=== PATIENT | female | born 1935 | race Two or more races ===

== ENCOUNTER → 2016-05-06 | Outpatient (CLI) | payer MEDICARE, MEDICAID ==
[2016-05-06 11:25] LABS: CHOLESTEROL 120.92 mg/dL (0-200); Direct HDL 56 mg/dL (>40); MAGNESIUM 2.1 mg/dL (1.6-2.3); TRIGLYCERIDES 116 mg/dL (<150)
[2016-05-06 11:36] LABS: DIRECT LDL 35 mg/dL (<100)
[2016-05-06 18:33] LABS: ALANINE AMINOTRANSFERASE 30 U/L (9-52); ALBUMIN 3.7 g/dL (3.5-5.0); ALKALINE PHOSPHATASE 63 U/L (38-126); ANION GAP 14 (5-19); ASPARTATE AMINO TRANSFERASE 19 U/L (14-36); BILIRUBIN,DIRECT 0.3 mg/dL (0.0-0.4); BILIRUBIN,TOTAL 0.4 mg/dL (0.2-1.3); BLOOD UREA NITROGEN 18 mg/dL (7-20); CALCIUM 9.7 mg/dL (8.4-10.2); CARBON DIOXIDE 24 mmol/L (22-30); CHLORIDE 109 mmol/L (98-107); CREATININE RESULT 0.96 mg/dL (0.52-1.25); GLUCOSE 75 mg/dL (75-110); POTASSIUM 3.9 mmol/L (3.6-5.0); SODIUM 146.6 mmol/L (137-145); TOTAL PROTEIN 6.4 g/dL (6.3-8.2)
== END ==
LOC: OD 09:45
PROVIDERS: ATTEND Internal Medicine Cardiovascular Disease
DX: Z79.899 Other long term (current) drug therapy (principal)
CPT/HCPCS: 36415; 80048; 80061; 80076; 83735

== ENCOUNTER → 2017-01-29 | Outpatient (CLI) | payer MEDICARE, MEDICAID ==
[2017-01-29 12:32] LABS: ANION GAP 12 (5-19); BLOOD UREA NITROGEN 20 mg/dL (7-20); CALCIUM 9.8 mg/dL (8.4-10.2); CARBON DIOXIDE 28 mmol/L (22-30); CHLORIDE 106 mmol/L (98-107); GLUCOSE 86 mg/dL (75-110); MAGNESIUM 2.2 mg/dL (1.6-2.3); POTASSIUM 3.8 mmol/L (3.6-5.0); SODIUM 145.5 mmol/L (137-145)
== END ==
LOC: OD 11:11
PROVIDERS: ATTEND Internal Medicine Cardiovascular Disease
DX: I10 Essential (primary) hypertension (principal); R00.2 Palpitations; Z79.899 Other long term (current) drug therapy
CPT/HCPCS: 36415; 80048; 83735

== ENCOUNTER 2017-04-15 13:10 | Emergency (ER) | payer MEDICARE, MEDICAID ==
[2017-04-15] MEDS ORDERED: ASPIRIN 325 MG TABLET PO ONE (13:45)
--- NOTE | 2017-04-15 13:46 | ER Document Report ---
ED Medical Screen (RME) - General Chief Complaint: Chest Pain Stated Complaint: CHEST PAIN, BLURRED VISION Time Seen by Provider: 04/15/17 13:44 Notes: pt had sudden onset severe epigastric pain with blurry vision today. Has hx of 5 stents. TRAVEL OUTSIDE OF THE [place] IN LAST 30 DAYS: No - Related Data Allergies/Adverse Reactions: No Known Allergies Allergy (Unverified 11/14/13 16:22) Past Medical History - Social History Frequency of alcohol use: None - Past Medical History Cardiac Medical History: Reports: Hx Hypercholesterolemia, Hx Hypertension Endocrine Medical History: Reports: Hx Diabetes Mellitus Type 2 Renal/ Medical History: Denies: Hx Peritoneal Dialysis Past Surgical History: Reports: Hx Cardiac Catheterization - 5 stents, last placed 06/2010 Physical Exam - Vital signs Vitals: Temp Pulse Resp BP Pulse Ox 98.5 F 66 16 102/54 L 99 04/15/17 13:26 04/15/17 13:26 04/15/17 13:26 04/15/17 13:26 04/15/17 13:26 Course - Vital Signs Vital signs: Temp Pulse Resp BP Pulse Ox 98.5 F 66 16 102/54 L 99 04/15/17 13:26 04/15/17 13:26 04/15/17 13:26 04/15/17 13:26 04/15/17 13:26
[2017-04-15 14:23] LABS: ABSOLUTE EOSINOPHILS # (AUTO) 0.2 10^3/uL (0.0-0.6); ABSOLUTE LYMPHOCYTES (AUTO) 1.3 10^3/uL (0.5-4.7); ABSOLUTE MONOCYTES (AUTO) 0.9 10^3/uL (0.1-1.4); ABSOLUTE NEUT (AUTO) 4.3 10^3/uL (1.7-8.2); BASOPHILS % (AUTO) 0.7 % (0-2); EOSINOPHILS % (AUTO) 2.9 % (0-6); HEMOGLOBIN 12.5 g/dL (12.0-15.5); LYMPHOCYTES % (AUTO) 19.2 % (13-45); MEAN CORPUSCULAR HEMOGLOBIN 34.3 pg (27.0-33.4); MEAN CORPUSCULAR HGB CONC 33.9 g/dL (32.0-36.0); MEAN CORPUSCULAR VOLUME 101 fl (80-97); MONOCYTES % (AUTO) 13.1 % (3-13); PLATELET COUNT 108 10^3/uL (150-450); RED BLOOD COUNT 3.65 10^6/uL (3.72-5.28); SEGMENTED NEUTROPHILS % (AUTO) 64.1 % (42-78); TOTAL CELLS COUNTED % (AUTO) 100 %; WHITE BLOOD COUNT 6.8 10^3/uL (4.0-10.5)
--- NOTE | 2017-04-15 14:47 | ER Document Report ---
ED General - General Chief Complaint: Chest Pain Stated Complaint: CHEST PAIN, BLURRED VISION Time Seen by Provider: 04/15/17 13:44 Notes: Patient began to experience a sudden, sharp substernal chest pain about noon today while she was walking in [facility]. She has nitroglycerin and took 1 of them and the sharp pain subsided about 1 PM. At the same time around noon, patient experienced some blurriness of her vision in both eyes. She continued to have some pressure in the lower substernal area of her chest, but she says that he is "normal for me". She has a history of a thoracic aortic aneurysm diagnosed in June 2008 and 2 surgical procedures of placing stents in August 2009 and June 2010. She attributes this pressure sensation to that condition. She is followed on a six-month basis and everything has been fine on her follow-up since that repair. Her blurred vision also resolved after about 30 minutes. Patient had not had anything to eat today. Patient has never had a heart attack or any blockages in her coronary arteries. Does have a history of hypertension and high cholesterol. Also NIDDM. Patient says that she has never had any pain like this 1 today and it has been gone for over an hour now. Did not have any nausea or vomiting or diarrhea. Denies shortness of breath or difficulty breathing. Has not had any recent illness or fever. Patient has been diagnosed with giant cell arteritis for which she is on prednisone. She has been on 10 mg a day, but is decreasing it by 1 mg a day over the past weeks trying to get off of that medication. Instead, she is receiving a weekly injection of Actemra TRAVEL OUTSIDE OF THE [place] IN LAST 30 DAYS: No - Related Data Allergies/Adverse Reactions: No Known Allergies Allergy (Verified 04/15/17 16:20) Past Medical History - Social History Smoking Status: Never Smoker Frequency of alcohol use: None Family History: Reviewed & Not Pertinent Patient has suicidal ideation: No Patient has homicidal ideation: No - Past Medical History Cardiac Medical History: Reports: Hx Hypercholesterolemia, Hx Hypertension, Other - Thoracic aortic dissection repaired Denies: Hx Coronary Artery Disease, Hx Heart Attack Endocrine Medical History: Reports: Hx Diabetes Mellitus Type 2 Skin Medical History: Reports Other - History of shingles Past Surgical History: Reports: Hx Appendectomy, Hx Cardiac Catheterization - 5 stents, last placed 06/2010, Hx Hysterectomy - Immunizations Hx Pneumococcal Vaccination: 02/16/11 Review of Systems - Review of Systems Notes: REVIEW OF SYSTEMS: CONSTITUTIONAL : Denies fever. EENT: See HPI regarding vision. Denies ear, nose or mouth or throat pain or other symptoms. CARDIOVASCULAR: See HPI. RESPIRATORY: Denies cough, chest congestion, or shortness of breath. GASTROINTESTINAL: Denies abdominal pain or nausea, vomiting, or diarrhea. GENITOURINARY: Denies difficulty or painful urinating, urinary frequency, blood in urine. MUSCULOSKELETAL: Denies back or neck pain. Denies joint pain or swelling. SKIN: Denies rash or skin lesions. NEUROLOGICAL: Denies LOC or altered mental status. Denies headache. Denies sensory loss or motor deficits. ALL OTHER SYSTEMS REVIEWED AND NEGATIVE. Physical Exam - Vital signs Vitals: Temp Pulse Resp BP Pulse Ox 98.5 F 66 16 102/54 L 99 04/15/17 13:26 04/15/17 13:26 04/15/17 13:26 04/15/17 13:26 04/15/17 13:26 Interpretation: Normal - Notes Notes: PHYSICAL EXAMINATION: GENERAL: Well-appearing, in no acute distress. Vital signs are all normal. HEAD: Atraumatic, normocephalic. EYES: Pupils equal round and reactive to light, extraocular movements intact. Vision normal ENT: oropharynx clear without exudates. Moist mucous membranes. NECK: Normal range of motion, supple. No carotid bruits heard. LUNGS: Breath sounds clear and equal bilaterally. No chest wall or sternal tenderness to palpation. HEART: Regular rate and rhythm without murmurs. ABDOMEN: Soft, nontender. No guarding or rebound. No masses. BACK: No tenderness throughout entire back. EXTREMITIES: Normal range of motion without pain. NEUROLOGICAL: Normal speech, normal gait. Normal sensory, motor, and reflex exams. Awake, alert, and oriented x3. Cranial nerves normal. PSYCH: Normal mood, normal affect. SKIN: Warm, dry, no rashes. Course - Re-evaluation Re-evalutation: 04/15/17 18:09 Patient remains asymptomatic and no symptoms or complaints at this time. However, I went over everything and told her there is no way I can be certain that she is not having something happening with her aortic dissection unless we do an arteriogram to look at the blood vessels and the aorta. Patient is agreeable to that study being performed. So a CTA of the chest has been ordered. 04/16/17 00:47 After getting the CTA of the aorta, I contacted vascular surgeon at [facility]. We went over the findings along with him looking at her previous findings in January up there. He told me that there is very little or no difference between our findings today and there is previously and he did not feel any further change in care plan would be indicated. He felt it safe to let this patient go home and keep her already scheduled follow-up appointment time. - Vital Signs Vital signs: Temp Pulse Resp BP Pulse Ox 97.5 F 61 15 113/65 97 04/15/17 20:12 04/15/17 20:12 04/15/17 20:12 04/15/17 20:12 04/15/17 20:12 - Laboratory Result Diagrams: 04/15/17 14:00 04/15/17 14:00 Laboratory results interpreted by me: 04/15/17 04/15/17 14:00 14:00 RBC 3.65 L MCV 101 H MCH 34.3 H RDW 15.0 H Plt Count 108 L Monocytes % 13.1 H BUN 31 H Creatinine 1.52 H Est GFR ( Amer) 40 L Est GFR (Non-Af Amer) 33 L - Diagnostic Test Radiology reviewed: Image reviewed, Reports reviewed - CTA of the aorta shows a 4.1 cm aneurysm just distal to the anastomosis of the endograft. There is also evidence of an associated type I endoleak which was not present on the previous study about 4 years ago. - EKG Interpretation by Me EKG shows normal: Sinus rhythm Rate: Normal Rhythm: NSR [place]/QRS: IVCD When compared to previous EKG there are: No significant change - EKG no change since previous EKG October, Discharge - Discharge Clinical Impression: Chest pain, non-cardiac, Thoracic aortic aneurysm Condition: Stable Disposition: HOME, SELF-CARE Additional Instructions: CHEST PAIN OF UNCLEAR CAUSE: The exact cause of your chest pain isn't clear. Fortunately, there is no evidence of a dangerous medical condition. Further testing may be required to find the source of the pain. Most often, we find that this pain is coming from the chest wall -- the muscles or rib joints in the chest. But chest pain can come from the lung and lung lining, the esophagus, the heart valves or heart lining, and even the stomach or gallbladder. Rest. Eat lightly until the pain is gone. We may prescribe medicine for pain and inflammation. You should call the physician immediately if the pain radiates to the shoulder, jaw or arms; if you start to run a fever or develop a cough; or if you develop shortness of breath, or other new or alarming symptoms. NORMAL EXAM AND WORKUP: At this time, your examination and workup show no significant abnormality, other than the previously diagnosed and treated thoracic aortic aneurysm. No significant abnormal physical findings were noted. All laboratory, EKG, and imaging (x-ray, CT scans, ultrasound) studies that were ordered show no significant abnormality. Although your examination and all studies that were ordered showed no significant abnormal finding, there are no examinations and no studies that are 100% accurate. There is always the possibility that some abnormality could exist and not be detected with physical examination or within the limits and capabilities of laboratory and other studies. You should return or follow up as you were instructed on your visit today for further evaluation if your symptoms do not resolve. Discussions with Dr. Cunningham at [facility] indicates that the findings on your CT scans here today were present on the previous study last fall at their facility. He does not feel there is been any change in the findings and that it safe for you to be discharged home to follow-up at your next scheduled appointment there. NITRATES: Nitroglycerin and related longer-acting nitrate medications are used to prevent or treat attacks of angina. These medicines dilate blood vessels, decreasing the work of the heart, and improving its supply of oxygen. Many different forms are available, including sublingual tablets (used under the tongue), sprays, skin patches, and long-acting pills. If the particular form of medication you have been given is not working well for you, contact your doctor. Long-acting forms: Take exactly as prescribed. Sudden stopping of medication can provoke increased attacks. Sublingual tabs or spray: A headache will usually occur with use. Sit or lie while waiting for the pain to go away. If angina doesn't respond to three doses (five minutes apart), call for emergency assistance. ANTACID THERAPY: You have been instructed to start antacid therapy. Antacids directly neutralize stomach acid. This is useful for acid irritation of the esophagus, gastritis, and ulcers. You should take two tablespoons of antacid one hour after each meal and three hours after each meal. If you are not eating, take the antacid every two hours. If you are using a concentrate (such as Maalox TC), use only one tablespoon. Many antacids affect the bowels. The most common problem is diarrhea. In this case, a pure aluminum hydroxide antacid (such as AlternaGel) can be substituted for some or all doses. If the problem is constipation, add a teaspoon of Milk of Magnesia to each dose. Call the doctor if you experience continued diarrhea or constipation, or if you develop lightheadedness, bloody stool or vomitus, severe abdominal pain, or black stool. FOLLOW-UP CARE: If you have been referred to a physician for follow-up care, call the physician s office for an appointment as you were instructed or within the next two days. If you experience worsening or a significant change in your symptoms, notify the physician immediately or return to the Emergency Department at any time for re-evaluation. Referrals: LB LIMA PA-C [Primary Care Provider] - Follow up as needed
[2017-04-15 14:49] LABS: ALANINE AMINOTRANSFERASE 37 U/L (9-52); ALBUMIN 4.1 g/dL (3.5-5.0); ALKALINE PHOSPHATASE 38 U/L (38-126); ANION GAP 11 (5-19); ASPARTATE AMINO TRANSFERASE 27 U/L (14-36); BILIRUBIN,DIRECT 0.2 mg/dL (0.0-0.4); BILIRUBIN,TOTAL 0.4 mg/dL (0.2-1.3); BLOOD UREA NITROGEN 31 mg/dL (7-20); CALCIUM 10.1 mg/dL (8.4-10.2); CARBON DIOXIDE 25 mmol/L (22-30); CHLORIDE 104 mmol/L (98-107); GLUCOSE 82 mg/dL (75-110); LIPASE 238.8 U/L (23-300); POTASSIUM 4.2 mmol/L (3.6-5.0); SODIUM 140.1 mmol/L (137-145); TOTAL PROTEIN 6.3 g/dL (6.3-8.2)
--- NOTE | 2017-04-15 15:19 | RADIOLOGY REPORT (SQ) ---
EXAM DESCRIPTION: CHEST PA/LAT COMPLETED DATE/TIME: 04/15/2017 3:08 pm REASON FOR STUDY: Substernal chest pain COMPARISON: CT chest 11/14/2013 AP chest 11/14/2013 EXAM PARAMETERS: NUMBER OF VIEWS: two views TECHNIQUE: Digital Frontal and Lateral radiographic views of the chest acquired. RADIATION DOSE: NA LIMITATIONS: none FINDINGS: LUNGS AND PLEURA: No opacities, masses or pneumothorax. No pleural effusion. MEDIASTINUM AND HILAR STRUCTURES: No masses or contour abnormalities. HEART AND VASCULAR STRUCTURES: Thoracic aortic stent graft is present, unchanged from CT 11/14/2013. Stable mild cardiomegaly BONES: No acute findings. HARDWARE: None in the chest. OTHER: No other significant finding. IMPRESSION: No acute findings. Stable mild cardiomegaly. Unchanged thoracic aorta stent graft compared to CT chest 11/14/2013 TECHNICAL DOCUMENTATION: JOB ID: [id number] [employer]- All Rights Reserved Reading location - IP/workstation name: [email or web address]
--- NOTE | 2017-04-15 19:16 | RADIOLOGY REPORT (SQ) ---
EXAM DESCRIPTION: CTA CHEST COMPLETED DATE/TIME: 04/15/2017 6:31 pm REASON FOR STUDY: attention aorta, Hx dissection COMPARISON: October 2013 TECHNIQUE: CT scan of the chest performed using helical scanning technique with dynamic intravenous contrast injection. Images reviewed with lung, soft tissue and bone windows. Reconstructed coronal and sagittal MPR images reviewed. Additional 3 dimensional post-processing performed to develop Maximal Intensity Projection images (IL P). All images stored on PACS. All CT scanners at this facility use dose modulation, iterative reconstruction, and/or weight based d osing when appropriate to reduce radiation dose to as low as reasonably achievable (ALARA). [facility]: Dose Right [facility]: CareDose [facility]: Dose Right [facility]: Teradose 4D [facility]: [email or web address] CONTRAST TYPE AND DOSE: contrast/concentration: Isovue 370.00 mg/ml; Total Contrast Delivered: 99.0 ml; Total Saline Delivered: 90.0 ml Contrast bolus optimized for the pulmonary arteries. Not diagnostic for the aorta. RENAL FUNCTION: Creatinine 1.52 RADIATION DOSE: CT Rad equipment meets quality standard of care and radiation dose reduction techniq ues were employed. CTDIvol: 7.5 - 19.8 mGy. DLP: 711 mGy-cm. . LIMITATIONS: None. FINDINGS: LUNGS AND PLEURA: No masses, infiltrates, pneumothorax. No pleural effusions, calcificati ons. AORTA AND GREAT VESSELS: A patent thoracic aortic endograft is again identified extending from the le santos of the aortic arch to the level of the approximate junction of thoracic and abdominal aorta just proximal to the celiac axis. On the current study there is an aneurysm just distal to the distal shraddha stomosis of the endograft measuring 4.1 cm. There is also evidence for an associated type 1 endoleak which was not present on the previous study. HEART: No pericardial effusion. No significant coronary artery calcifications. PULMONARY ARTERIES: No emboli visualized in the main pulmonary arteries or the segmental branches. HILAR AND MEDIASTINAL STRUCTURES: No identified masses or abnormal nodes. HARDWARE: Thoracic endograft is identified. UPPER ABDOMEN: See results under abdominal CT scan THYROID AND OTHER SOFT TISSUES: No masses. No adenopathy. BONES: No acute or significant finding. 3D MIPS: Confirm above findings. OTHER: No other significant finding. IMPRESSION: A patent thoracic aortic endograft is again identified as noted above. On the current s tudy there is an aneurysm just distal to the distal anastomosis of the endograft measuring 4.1 cm wit h an associated type 1 endograft leak. No evidence for pulmonary embolic disease. Other findings as noted above COMMENT: Quality ID # 436: Final reports with documentation of one or more dose reduction techniques (e.g., Automated exposure control, adjustment of the mA and/or kV according to patient size, use of iterative reconstruction technique) TECHNICAL DOCUMENTATION: JOB ID: [id number] [employer]- All Rights Reserved Reading location - IP/workstation name: [email or web address]
--- NOTE | 2017-04-15 19:24 | RADIOLOGY REPORT (SQ) ---
EXAM DESCRIPTION: CTA ABDOMEN COMPLETED DATE/TIME: 04/15/2017 6:31 pm REASON FOR STUDY: ATTENTION AORTA, HX DISSECTION COMPARISON: None. TECHNIQUE: CT scan of the abdominal aorta extending to the iliac bifurcation performed with intraven ous contrast using helical scanning technique with dynamic intravenous contrast injection. Images rev iewed with lung, soft tissue, and bone windows. Reconstructed coronal and sagittal MPR images reviewe d. All images stored on PACS. Advanced 3D imaging as volume rendering, MIPS, SSD performed? yes All CT scanners at this facility use dose modulation, iterative reconstruction, and/or weight based d osing when appropriate to reduce radiation dose to as low as reasonably achievable (ALARA). [facility]: Dose Right [facility]: CareDose [facility]: Dose Right [facility]: Teradose 4D [facility]: [employer] CONTRAST TYPE AND DOSE: 99 pari Isovue 370 RENAL FUNCTION: Creatinine 1.52 LIMITATIONS: None. FINDINGS: POST-CONTRAST IMAGING: AORTA AND VESSELS: There is tapering of the aneurysm just distal to the distal end of the thoracic en dograft extending into the remaining abdominal aorta. LUNG BASES: See results under chest CT scan the aneurysm measures 3.5 cm in greatest diameter in the proximal abdominal aorta. There is ectasia of the infrarenal abdominal aorta with vascular calcifica tions without focal aneurysm. LIVER: Normal size. No masses or dilated ducts. SPLEEN: Normal size. No focal lesions. PANCREAS: No masses. No significant calcifications. No adjacent inflammation or peripancreatic fluid collections. Pancreatic duct not dilated. GALLBLADDER: No identified stones by CT criteria. No inflammatory changes to suggest cholecystitis. ADRENAL GLANDS: No significant masses or asymmetry. RIGHT KIDNEY AND URETER: No mass, calculi or urinary tract obstruction. LEFT KIDNEY AND URETER: No mass, calculi or urinary tract obstruction. RETROPERITONEUM: No retroperitoneal adenopathy, hemorrhage or masses. BOWEL AND PERITONEAL CAVITY: No masses or inflammatory changes. No free fluid or peritoneal masses. APPENDIX: Not identified ABDOMINAL WALL: No masses. No hernias. BONY STRUCTURES: No significant or acute findings. 3-D IMAGING: Confirms the above findings. OTHER: No other significant finding. IMPRESSION: There is tapering of the previously described aneurysm just distal to the distal end of the thoracic endograft extending into the remaining abdominal aorta as noted above. The aneurysm isaias sures 3.5 cm in greatest diameter and the proximal abdominal aorta. There is ectasia of the infraren al abdominal aorta with vascular calcifications without focal aneurysm. Other findings as noted abov e. TECHNICAL DOCUMENTATION: JOB ID: [id number] Quality ID # [id number]: Final reports with documentation of one or more dose reduction techniques (e.g., Au tomated exposure control, adjustment of the mA and/or kV according to patient size, use of iterative reconstruction technique) 2010 [employer]- All Rights Reserved Reading location - IP/workstation name: [email or web address]
--- NOTE | 2017-04-15 20:00 | EKG REPORT ---
SEVERITY:- ABNORMAL ECG - SINUS RHYTHM LVH WITH IVCD, LAD AND SECONDARY REPOL ABNRM LAFB : Confirmed by: Sylvester Mcclellan MD 15-Apr-2017 19:59:35
[2017-04-15 20:14] VITALS: BP 113/65
== END 2017-04-15 20:20 | disposition home or self-care (01) ==
LOC: ER 13:10
DX: I71.2 Thoracic aortic aneurysm, without rupture (principal); R07.89 Other chest pain; H53.8 Other visual disturbances
CPT/HCPCS: 36415; 71046; 71275; 74175; 80053; 83690; 84484; 85025; 93005; 93010; 99285

== ENCOUNTER → 2017-06-02 | Outpatient (CLI) | payer MEDICARE, MEDICAID ==
[2017-06-02 11:42] LABS: ANION GAP 12 (5-19); BLOOD UREA NITROGEN 22 mg/dL (7-20); CALCIUM 10.2 mg/dL (8.4-10.2); CARBON DIOXIDE 25 mmol/L (22-30); CHLORIDE 107 mmol/L (98-107); CHOLESTEROL 154.99 mg/dL (0-200); GLUCOSE 93 mg/dL (75-110); POTASSIUM 4.2 mmol/L (3.6-5.0); SODIUM 143.5 mmol/L (137-145); TRIGLYCERIDES 175 mg/dL (<150)
[2017-06-02 11:53] LABS: DIRECT LDL 62 mg/dL (<100)
== END ==
LOC: OD 10:24
PROVIDERS: ATTEND Internal Medicine Cardiovascular Disease
DX: I12.9 Hypertensive chronic kidney disease with stage 1 through stage 4 chronic kidney disease, or unspecified chronic kidney disease (principal); N18.3 Chronic kidney disease, stage 3 (moderate); I25.10 Atherosclerotic heart disease of native coronary artery without angina pectoris
CPT/HCPCS: 36415; 80048; 80061

== ENCOUNTER → 2017-06-30 | Outpatient (CLI) | payer MEDICARE, MEDICAID ==
[~2017-06-30] MED LIST: REGADENOSON INJ 0.4 MG/5 ML DISP.SYRIN IV ONE
--- NOTE | 2017-06-30 20:34 | RADIOLOGY REPORT ---
STRESS TEST REPORT PAT[id number] RO[facility]#: DATE OF SERVICE: 06/30/2017 AGE: 82Y ORDER#: [id number] REFERRING MD: SUSIE BERNSTEIN M.D. PROCEDURE PERFORMED: Rest/stress single-isotope Cardiolite SPECT imaging with IV Lexiscan stress and gated SPECT imaging. INDICATION: For giant cell arteritis, investigate chest pains, previous stress MPI positive in 2016. CLINICAL HISTORY: This is an 82-year-old female with no known coronary artery disease but is known to have giant cell arteritis with additional risk factors of hypertension, hypercholesterolemia and type 2 diabetes currently complaining of chest pains. REPORT Patient received IV Lexiscan of 0.4 mg infused over 10 seconds. The resting heart rate was 69 BPM and increased to 77 BPM at end infusion. The resting blood pressure was 106/59 and increased to 125/63 at end infusion. Patient had symptoms of shortness of breath, mild flushing, but no chest pains. Resting 12-lead EKG showed NSR, 57 BPM, first degree AV block, left anterior fascicular block, and old anterior VT. At end infusion, no ST changes were seen. Myocardial perfusion imaging was performed at rest 60 minutes following the injection of 10.63 mCi of Cardiolite. Ten seconds after IV Lexiscan injection, patient was injected with 32.6 mCi of Cardiolite and flushed. Gated post-stress tomographic imaging was performed 60 minutes after stress. SUMMARY OF FINDINGS/IMPRESSION: The overall quality of the study is good. The left ventricular cavity is noted to be normal in size on both the stress and rest studies. There is no abnormal transient ischemic dilatation of the left ventricle. TID ratio was 1.13. SPECT images showed a small fixed perfusion defect in the apical inferolateral wall but no reversible ischemia. The gated SPECT imaging showed reduced contraction but normal motion in the apical inferolateral wall. The left ventricular ejection fraction was calculated to be 65%. IMPRESSION: Myocardial perfusion imaging is mildly abnormal. There is a small area of fixed perfusion defect in the apical inferolateral wall but no reversible ischemia. There is reduced contraction but normal motion in the apical inferior wall and apical inferolateral wall. Overall, left ventricular systolic function was normal at 65%. No prior study for comparison. INTERPRETING PHYSICIAN: SUSIE BERNSTEIN M.D. /: [id number] TT: 2023 ID: [id number] /: [id number] TD: [id number] JOB: [id number] cc:SUSIE BERNSTEIN M.D. >
== END ==
LOC: RAD 06:36
PROVIDERS: ATTEND Internal Medicine Cardiovascular Disease
DX: I25.10 Atherosclerotic heart disease of native coronary artery without angina pectoris (principal); M31.6 Other giant cell arteritis; R07.9 Chest pain, unspecified; I10 Essential (primary) hypertension; E78.00 Pure hypercholesterolemia, unspecified; E11.9 Type 2 diabetes mellitus without complications
CPT/HCPCS: 93017; 78452; A9500; J2785; Q9969

== ENCOUNTER → 2017-08-18 | Outpatient (CLI) | payer MEDICARE, MEDICAID ==
[2017-08-18 11:04] LABS: ALANINE AMINOTRANSFERASE 32 U/L (9-52); ALBUMIN 4.5 g/dL (3.5-5.0); ALKALINE PHOSPHATASE 50 U/L (38-126); ASPARTATE AMINO TRANSFERASE 29 U/L (14-36); BILIRUBIN,DIRECT 0.3 mg/dL (0.0-0.4); BILIRUBIN,TOTAL 0.6 mg/dL (0.2-1.3); CHOLESTEROL 144.16 mg/dL (0-200); TOTAL PROTEIN 7.1 g/dL (6.3-8.2); TRIGLYCERIDES 169 mg/dL (<150)
[2017-08-18 11:16] LABS: DIRECT LDL 43 mg/dL (<100)
[2017-08-18 11:18] LABS: VLDL CHOLESTEROL 33.8 mg/dL (10-31)
== END ==
LOC: OD 10:08
PROVIDERS: ATTEND Internal Medicine Cardiovascular Disease
DX: E78.2 Mixed hyperlipidemia (principal); M31.6 Other giant cell arteritis; Z79.899 Other long term (current) drug therapy
CPT/HCPCS: 36415; 80061; 80076; 85652

== ENCOUNTER → 2017-08-28 | Outpatient (CLI) | payer MEDICARE, MEDICAID ==
--- NOTE | 2017-08-28 11:28 | RADIOLOGY REPORT (SQ) ---
EXAM DESCRIPTION: T SPINE AP/LAT COMPLETED DATE/TIME: 08/28/2017 11:07 am REASON FOR STUDY: PAIN IN THORACIC SPINE M54.5 LOW BACK PAIN COMPARISON: None. NUMBER OF VIEWS: Two views. TECHNIQUE: AP and lateral radiographic images acquired of the thoracic spine. LIMITATIONS: None. FINDINGS: MINERALIZATION: Normal. ALIGNMENT: Minimal scoliosis. VERTEBRAE: No fracture or bone lesion. Maintained height, normal segmentation. DISCS: Multilevel disc space narrowing with vertebral endplate sclerosis. HARDWARE: None in the spine. There is a stent in the descending aorta. MEDIASTINUM AND SOFT TISSUES: Normal heart size and aortic contour. No soft tissue abnormality. VISUALIZED LUNG BEAR: Clear. OTHER: No other significant finding. IMPRESSION: Degenerative disc changes. No acute finding. TECHNICAL DOCUMENTATION: JOB ID: [id number] [employer]- All Rights Reserved Reading location - IP/workstation name: [email or web address]
--- NOTE | 2017-08-28 11:31 | RADIOLOGY REPORT (SQ) ---
EXAM DESCRIPTION: L SPINE WHOLE COMPLETED DATE/TIME: 08/28/2017 11:07 am REASON FOR STUDY: LOW BACK PAIN M54.5 LOW BACK PAIN COMPARISON: None. NUMBER OF VIEWS: Five views including obliques. TECHNIQUE: AP, lateral, oblique, and sacral radiographic images acquired of the lumbar spine. LIMITATIONS: None. FINDINGS: MINERALIZATION: Normal. SEGMENTATION: Normal. No transitional anatomy. ALIGNMENT: Grade 1 anterolisthesis of L3 on L4. Grade 1-2 anterolisthesis of L5 on S1. VERTEBRAE: Maintained height. No fracture or worrisome bone lesion. DISCS: Disc spaces are narrowed from L3-S1. POSTERIOR ELEMENTS: Hypertrophic facet changes from L3-S1. HARDWARE: None in the spine. PARASPINAL SOFT TISSUES: Normal. PELVIS: Intact as visualized. No fractures or worrisome bone lesions. SI joints intact. OTHER: No other significant finding. IMPRESSION: Anterolisthesis these as described. Degenerative disc disease and facet arthropathy. TECHNICAL DOCUMENTATION: JOB ID: [id number] [employer]- All Rights Reserved Reading location - IP/workstation name: [email or web address]
== END ==
LOC: RAD 10:36
PROVIDERS: ATTEND Physician Assistant
DX: M54.5 Low back pain (principal); M51.36 Other intervertebral disc degeneration, lumbar region; M51.34 Other intervertebral disc degeneration, thoracic region
CPT/HCPCS: 72070; 72110

== ENCOUNTER → 2018-02-23 | Outpatient (CLI) | payer MEDICARE, MEDICAID ==
[2018-02-23 11:36] LABS: ALANINE AMINOTRANSFERASE 15 U/L (9-52); ALKALINE PHOSPHATASE 40 U/L (38-126); ASPARTATE AMINO TRANSFERASE 21 U/L (14-36); BILIRUBIN,DIRECT 0.1 mg/dL (0.0-0.4); BILIRUBIN,TOTAL 0.4 mg/dL (0.2-1.3); CHOLESTEROL 120.63 mg/dL (0-200); TOTAL PROTEIN 6.3 g/dL (6.3-8.2); TRIGLYCERIDES 140 mg/dL (<150)
[2018-02-23 11:49] LABS: DIRECT LDL 53 mg/dL (<100)
== END ==
LOC: OD 10:21
PROVIDERS: ATTEND Internal Medicine Cardiovascular Disease
DX: E78.2 Mixed hyperlipidemia (principal); Z79.899 Other long term (current) drug therapy
CPT/HCPCS: 36415; 80061; 80076

== ENCOUNTER → 2018-05-24 | Outpatient (CLI) | payer MEDICARE, MEDICAID ==
[2018-05-24 14:20] LABS: HEMATOCRIT 39.3 % (36.0-47.0); HEMOGLOBIN 13.5 g/dL (12.0-15.5); MEAN CORPUSCULAR HEMOGLOBIN 36.6 pg (27.0-33.4); MEAN CORPUSCULAR HGB CONC 34.4 g/dL (32.0-36.0); MEAN CORPUSCULAR VOLUME 106 fl (80-97); PLATELET COUNT 104 10^3/uL (150-450); RED CELL DISTRIBUTION WIDTH 13.4 % (11.5-14.0)
[2018-05-24 14:45] LABS: ALANINE AMINOTRANSFERASE 25 U/L (9-52); ALBUMIN 4.4 g/dL (3.5-5.0); ALKALINE PHOSPHATASE 42 U/L (38-126); ANION GAP 11 (5-19); ASPARTATE AMINO TRANSFERASE 22 U/L (14-36); BILIRUBIN,DIRECT 0.2 mg/dL (0.0-0.4); BILIRUBIN,TOTAL 0.4 mg/dL (0.2-1.3); BLOOD UREA NITROGEN 25 mg/dL (7-20); CALCIUM 10.8 mg/dL (8.4-10.2); CARBON DIOXIDE 27 mmol/L (22-30); CHLORIDE 103 mmol/L (98-107); CHOLESTEROL 143.13 mg/dL (0-200); GLUCOSE 202 mg/dL (75-110); POTASSIUM 4.2 mmol/L (3.6-5.0); SODIUM 140.6 mmol/L (137-145); TOTAL PROTEIN 7.2 g/dL (6.3-8.2); TRIGLYCERIDES 256 mg/dL (<150)
[2018-05-24 14:56] LABS: DIRECT LDL 56 mg/dL (<100)
[2018-05-24 15:01] LABS: VLDL CHOLESTEROL 51.2 mg/dL (10-31)
== END ==
LOC: LAB 13:53
PROVIDERS: ATTEND Internal Medicine Cardiovascular Disease
DX: I10 Essential (primary) hypertension (principal); E78.2 Mixed hyperlipidemia; Z79.899 Other long term (current) drug therapy
CPT/HCPCS: 36415; 80048; 80061; 80076; 85027

== ENCOUNTER → 2018-06-25 | Outpatient (CLI) | payer MEDICARE, MEDICAID | LOC: LAB 08:47 | PROVIDERS: ATTEND Internal Medicine Cardiovascular Disease | DX: E78.2 Mixed hyperlipidemia (principal); I10 Essential (primary) hypertension; M31.6 Other giant cell arteritis; Z79.899 Other long term (current) drug therapy ==

== ENCOUNTER → 2018-11-23 | Outpatient (CLI) | payer MEDICARE, MEDICAID ==
[2018-11-23 10:22] LABS: HEMATOCRIT 32.8 % (36.0-47.0); HEMOGLOBIN 10.9 g/dL (12.0-15.5); MEAN CORPUSCULAR HGB CONC 33.3 g/dL (32.0-36.0); MEAN CORPUSCULAR VOLUME 105 fl (80-97); PLATELET COUNT 151 10^3/uL (150-450); RED BLOOD COUNT 3.12 10^6/uL (3.72-5.28); RED CELL DISTRIBUTION WIDTH 14.9 % (11.5-14.0)
[2018-11-23 10:42] LABS: ALBUMIN 3.7 g/dL (3.5-5.0); ALKALINE PHOSPHATASE 58 U/L (38-126); ANION GAP 8 (5-19); ASPARTATE AMINO TRANSFERASE 23 U/L (14-36); BILIRUBIN,DIRECT 0.1 mg/dL (0.0-0.4); BILIRUBIN,TOTAL 0.4 mg/dL (0.2-1.3); BLOOD UREA NITROGEN 19 mg/dL (7-20); CALCIUM 9.7 mg/dL (8.4-10.2); CARBON DIOXIDE 28 mmol/L (22-30); CHLORIDE 103 mmol/L (98-107); GLUCOSE 86 mg/dL (75-110); TOTAL PROTEIN 6.7 g/dL (6.3-8.2); TRIGLYCERIDES 146 mg/dL (<150)
[2018-11-23 10:53] LABS: DIRECT LDL 33 mg/dL (<100)
== END ==
LOC: LAB 09:59
PROVIDERS: ATTEND Internal Medicine Cardiovascular Disease
DX: E78.2 Mixed hyperlipidemia (principal); I10 Essential (primary) hypertension; M31.6 Other giant cell arteritis; Z79.899 Other long term (current) drug therapy
CPT/HCPCS: 36415; 80048; 80061; 80076; 85027

== ENCOUNTER → 2019-05-16 | Outpatient (CLI) | payer MEDICARE, MEDICAID ==
[2019-05-16 10:11] LABS: HEMATOCRIT 32.5 % (36.0-47.0); HEMOGLOBIN 11.5 g/dL (12.0-15.5); MEAN CORPUSCULAR HEMOGLOBIN 39.5 pg (27.0-33.4); MEAN CORPUSCULAR HGB CONC 35.3 g/dL (32.0-36.0); MEAN CORPUSCULAR VOLUME 112 fl (80-97); PLATELET COUNT 146 10^3/uL (150-450); RED CELL DISTRIBUTION WIDTH 14.9 % (11.5-14.0); WHITE BLOOD COUNT 8.1 10^3/uL (4.0-10.5)
[2019-05-16 10:18] LABS: ALBUMIN 3.9 g/dL (3.5-5.0); ALKALINE PHOSPHATASE 68 U/L (38-126); ANION GAP 8 (5-19); ASPARTATE AMINO TRANSFERASE 24 U/L (14-36); BILIRUBIN,TOTAL 0.3 mg/dL (0.2-1.3); BLOOD UREA NITROGEN 25 mg/dL (7-20); CALCIUM 9.8 mg/dL (8.4-10.2); CARBON DIOXIDE 27 mmol/L (22-30); CHLORIDE 106 mmol/L (98-107); CHOLESTEROL 109.93 mg/dL (0-200); GLUCOSE 114 mg/dL (75-110); POTASSIUM 4.2 mmol/L (3.6-5.0); TOTAL PROTEIN 6.8 g/dL (6.3-8.2); TRIGLYCERIDES 140 mg/dL (<150)
[2019-05-16 10:30] LABS: DIRECT LDL 39 mg/dL (<100)
== END ==
LOC: LAB 09:31
PROVIDERS: ATTEND Internal Medicine Cardiovascular Disease
DX: I10 Essential (primary) hypertension (principal); E78.2 Mixed hyperlipidemia; E11.9 Type 2 diabetes mellitus without complications; Z79.899 Other long term (current) drug therapy
CPT/HCPCS: 36415; 80048; 80061; 80076; 83036; 85027

== ENCOUNTER → 2019-11-22 | Outpatient (CLI) | payer MEDICARE, MEDICAID ==
[2019-11-22 12:01] LABS: ALBUMIN 4.2 g/dL (3.5-5.0); ALKALINE PHOSPHATASE 60 U/L (38-126); ANION GAP 10 (5-19); ASPARTATE AMINO TRANSFERASE 28 U/L (14-36); BILIRUBIN,DIRECT 0.3 mg/dL (0.0-0.4); BILIRUBIN,TOTAL 0.5 mg/dL (0.2-1.3); BLOOD UREA NITROGEN 28 mg/dL (7-20); CALCIUM 9.8 mg/dL (8.4-10.2); CARBON DIOXIDE 27 mmol/L (22-30); CHLORIDE 107 mmol/L (98-107); CHOLESTEROL 101.15 mg/dL (0-200); GLUCOSE 85 mg/dL (75-110); POTASSIUM 3.8 mmol/L (3.6-5.0); TOTAL PROTEIN 6.9 g/dL (6.3-8.2); TRIGLYCERIDES 119 mg/dL (<150)
[2019-11-22 12:10] LABS: HEMATOCRIT 31.4 % (36.0-47.0); HEMOGLOBIN 10.9 g/dL (12.0-15.5)
[2019-11-22 12:18] LABS: PLATELET COUNT 112 10^3/uL (150-450); RED CELL DISTRIBUTION WIDTH 14.8 % (11.5-14.0); WHITE BLOOD COUNT 6.2 10^3/uL (4.0-10.5)
[2019-11-22 12:19] LABS: DIRECT LDL < 30 mg/dL (<100); MEAN CORPUSCULAR HGB CONC 34.8 g/dL (32.0-36.0); MEAN CORPUSCULAR VOLUME 103 fl (80-97); RED BLOOD COUNT 3.04 10^6/uL (3.72-5.28)
== END ==
LOC: OD 10:30
PROVIDERS: ATTEND Internal Medicine Cardiovascular Disease
DX: E78.2 Mixed hyperlipidemia (principal); I10 Essential (primary) hypertension; E11.9 Type 2 diabetes mellitus without complications; Z79.899 Other long term (current) drug therapy
CPT/HCPCS: 36415; 80048; 80061; 80076; 83036; 85027

== ENCOUNTER 2019-11-26 14:19 | Emergency (ER) | payer MEDICARE, MEDICAID ==
--- NOTE | 2019-11-26 15:16 | ER Document Report ---
ED General - General Chief Complaint: Shortness Of Breath Stated Complaint: SHORTNESS OF BREATH Primary Care Provider: LB LIMA PA-C [Primary Care Provider] - Follow up as needed Notes: Patient is an 84-year-old white female with a history of diabetes, hypertension, hyperlipidemia, hypothyroidism and CAD who presents to the emergency department the chief complaint of shortness of breath for the past 2 to 3 weeks. She states that she saw her primary doctor, Dr. Piña who referred her for some blood work. She states that the blood work showed an elevated d-dimer and Dr. Piña sent her here for chest imaging. She states they are trying to figure out why she is been short of breath for the past 2 to 3 weeks. She denies any assoc iated complaints. She states that shortness of breath is worse with exertion. Denies smoking. Denies chest pain, lower extremity pain or swelling, cough, hemoptysis, history of DVT or PE, recent surgery, recent travel or recent immobilization. No reported history of cancer or hormone placement medicines. TRAVEL OUTSIDE OF THE [place] IN LAST 30 DAYS: No - Related Data Allergies/Adverse Reactions: No Known Allergies Allergy (Verified 04/15/17 16:20) Past Medical History - Social History Smoking Status: Unknown if Ever Smoked - Non-smoker currently Family History: Reviewed & Not Pertinent - Past Medical History Cardiac Medical History: Reports: Hx Hypercholesterolemia, Hx Hypertension Denies: Hx Coronary Artery Disease, Hx Heart Attack Endocrine Medical History: Reports: Hx Diabetes Mellitus Type 2 Renal/ Medical History: Denies: Hx Peritoneal Dialysis Past Surgical History: Reports: Hx Appendectomy, Hx Cardiac Catheterization - 5 stents, last placed 06/2010, Hx Hysterectomy - Immunizations Hx Pneumococcal Vaccination: 02/16/11 Review of Systems - Review of Systems Constitutional: denies: Fever EENT: denies: Eye pain Cardiovascular: denies: Chest pain Respiratory: Short of breath Gastrointestinal: denies: Vomiting Genitourinary: denies: Flank pain Female Genitourinary: denies: Musculoskeletal: denies: Neck pain Skin: denies: Dryness Hematologic/Lymphatic: denies: Easy bruising Neurological/Psychological: denies: Paralysis Physical Exam - Vital signs Vitals: Temp Pulse Resp BP Pulse Ox 97.6 F 94 24 H 111/62 100 11/26/19 14:29 11/26/19 14:29 11/26/19 14:29 11/26/19 14:29 11/26/19 14:29 - General General appearance: Appears well, Alert In distress: None - HEENT Head: Normocephalic, Atraumatic Eyes: Normal Conjunctiva: Normal Extraocular movements intact: Yes Pupils: PERRL Mouth/Lips: Normal Mucous membranes: Normal Pharynx: Normal Neck: Normal, Supple - Respiratory Respiratory status: No respiratory distress Chest status: Nontender Breath sounds: Normal Chest palpation: Normal - Cardiovascular Rhythm: Regular Heart sounds: Normal auscultation Murmur: No - Extremities General upper extremity: Normal inspection, Nontender, Normal color, Normal ROM, Normal temperature General lower extremity: Normal inspection, Nontender, Normal color, Normal ROM, Normal temperature, Normal weight bearing. No: Elizabeth's sign - Neurological Neuro grossly intact: Yes Cognition: Normal Orientation: AAOx4 Cindy Coma Scale Eye Opening: Spontaneous Rogers Coma Scale Verbal: Oriented Cindy Coma Scale Motor: Obeys Commands Cindy Coma Scale Total: 15 Speech: Normal - Psychological Associated symptoms: Normal affect, Normal mood - Skin Skin Temperature: Warm Skin Moisture: Dry Skin Color: Normal Course - Re-evaluation Re-evalutation: 11/26/19 15:15 EK, sinus rhythm at 78 bpm. Normal intervals. No STEMI. Compared with prior from March 2017 and it shows no new changes. Interpreted myself in conjunction with ED attending. 11/26/19 17:[address] scan showing no PE. NT BNP was just slightly elevated not significant for heart failure. 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 No dissection. The patient has no chest pain. The shortness of breath is been ongoing for 2 to 3 weeks. Troponins were negative and EKG showing no acute process and similar to previous. Oxygen saturations stable and within normal limits. No desaturation. Vitals stable. Patient is hemodynamically stable. I called and spoke with the patient's commodity loan clerk, Dr. Mcclellan at [phone]. He recommended the patient be referred to pulmonology but felt from a cardiovascular standpoint that she was stable with these findings and presentation. She is pending COVID-[address] Mcclellan felt the shortness of breath was not cardiovascular related. Discussed this with the patient. She will be referred to pulmonology. In the interim she will quaranti ne until a negative COVID-19 result is found or until given further guidance by healthcare professional of the polyp as a result is found. Advised she follow- up with her regular doctor, Dr. Mcclellan and the die sizer as referred. Advise she return here or any ER immediately with any new, persistent or worsening symptoms. She verbalized understood and agreed. 11/26/19 17:06 - Vital Signs Vital signs: Temp Pulse Resp BP Pulse Ox 97.6 F 94 15 106/61 100 11/26/19 14:29 11/26/19 14:29 11/26/19 17:00 11/26/19 15:01 11/26/19 17:00 - Laboratory Result Diagrams: 11/26/19 14:53 11/26/19 14:53 Laboratory results interpreted by me: 11/26/19 11/26/19 11/26/19 14:53 14:53 14:53 RBC 2.95 L Hgb 10.5 L Hct 30.7 L MCV 104 H MCH 35.7 H RDW 15.2 H Plt Count 100 L [place] % (Auto) 15.3 H BUN 22 H Est GFR (MDRD) Non-Af 50 L Creatine Kinase < 20 L NT-Pro-B Natriuret Pep 607 H Total Protein 6.2 L Discharge - Discharge Clinical Impression: Shortness of breath Condition: Stable Disposition: HOME, SELF-CARE Instructions: COVID-19 Guidance for Persons Under Investigation Additional Instructions: Please call to establish an appointment with the lung doctor on your paperwork. Please follow-up with Dr. Mcclellan as well as her primary care provider for continued care and management. Please return here or any ER immediately with any new, persistent or worsening symptoms. Referrals: LB LIMA PA-C [Primary Care Provider] - Follow up as needed RE HOOK MD [ACTIVE STAFF] - Follow up as needed
[2019-11-26 15:31] LABS: ALBUMIN 3.7 g/dL (3.5-5.0); ALKALINE PHOSPHATASE 55 U/L (38-126); ANION GAP 8 (5-19); ASPARTATE AMINO TRANSFERASE 34 U/L (14-36); BILIRUBIN,DIRECT 0.2 mg/dL (0.0-0.4); BILIRUBIN,TOTAL 0.5 mg/dL (0.2-1.3); BLOOD UREA NITROGEN 22 mg/dL (7-20); CALCIUM 9.5 mg/dL (8.4-10.2); CARBON DIOXIDE 26 mmol/L (22-30); CHLORIDE 104 mmol/L (98-107); GLUCOSE 95 mg/dL (75-110); POTASSIUM 4.2 mmol/L (3.6-5.0); TOTAL PROTEIN 6.2 g/dL (6.3-8.2)
[2019-11-26 15:33] LABS: CREATINE KINASE < 20 U/L (30-135); INTERNATIONAL RATION (INR) 1.02; PROTHROMBIN TIME 13.6 SEC (11.4-15.4)
[2019-11-26 15:34] LABS: PARTIAL THROMBOPLASTIN TIME 26.9 SEC (23.5-35.8)
[2019-11-26 15:43] LABS: TROPONIN I 0.013 ng/mL
[2019-11-26 15:50] LABS: ABSOLUTE EOSINOPHILS # (AUTO) 0.2 10^3/uL (0.0-0.6); ABSOLUTE LYMPHOCYTES (AUTO) 0.8 10^3/uL (0.5-4.7); ABSOLUTE MONOCYTES (AUTO) 0.7 10^3/uL (0.1-1.4); BASOPHILS % (AUTO) 0.7 % (0-2); EOSINOPHILS % (AUTO) 3.4 % (0-6); HEMATOCRIT 30.7 % (36.0-47.0); HEMOGLOBIN 10.5 g/dL (12.0-15.5); LYMPHOCYTES % (AUTO) 16.5 % (13-45); MONOCYTES % (AUTO) 15.3 % (3-13); PLATELET COUNT 100 10^3/uL (150-450); RED CELL DISTRIBUTION WIDTH 15.2 % (11.5-14.0); SEGMENTED NEUTROPHILS % (AUTO) 64.1 % (42-78); TOTAL CELLS COUNTED % (AUTO) 100 %; WHITE BLOOD COUNT 4.7 10^3/uL (4.0-10.5)
[2019-11-26 16:01] LABS: RED BLOOD COUNT 2.95 10^6/uL (3.72-5.28)
[2019-11-26 16:02] LABS: MEAN CORPUSCULAR HEMOGLOBIN 35.7 pg (27.0-33.4); MEAN CORPUSCULAR HGB CONC 34.3 g/dL (32.0-36.0); MEAN CORPUSCULAR VOLUME 104 fl (80-97)
--- NOTE | 2019-11-26 16:31 | RADIOLOGY REPORT (SQ) ---
EXAM DESCRIPTION: CTA CHEST IMAGES COMPLETED DATE/TIME: 11/26/2019 4:07 pm REASON FOR STUDY: chest pain sob COMPARISON: 04/15/2017 TECHNIQUE: CT scan of the chest performed using helical scanning technique with dynamic intravenous contrast injection. Images reviewed with lung, soft tissue and bone windows. Reconstructed coronal and sagittal MPR images reviewed. Additional 3 dimensional post-processing performed to develop Maximal Intensity Projection images ([place] P). All images stored on PACS. All CT scanners at this facility use dose modulation, iterative reconstruction, and/or weight based d osing when appropriate to reduce radiation dose to as low as reasonably achievable (ALARA). [facility]: Dose Right [facility]: CareDose [facility]: Dose Right [facility]: Teradose 4D [facility]: [employer] RENAL FUNCTION: BUN 31 creatinine 1.5 RADIATION DOSE: CT Rad equipment meets quality standard of care and radiation dose reduction techniq ues were employed. CTDIvol: 9.9 - 14.3 mGy. DLP: 480 mGy-cm. . LIMITATIONS: None. FINDINGS: LUNGS AND PLEURA: Chronic interstitial changes. No infiltrate. No effusion. AORTA AND GREAT VESSELS: Aortic endograft position unchanged. Proximal abdominal aortic aneurysm 4.9 x 6.1 cm. Previously 4.8 x 5.2 cm. No dissection. HEART: No pericardial effusion. Cardiomegaly. Small pericardial effusion. PULMONARY ARTERIES: No emboli visualized in the main pulmonary arteries or the segmental branches. HILAR AND MEDIASTINAL STRUCTURES: No identified masses or abnormal nodes. HARDWARE: None in the chest. UPPER ABDOMEN: See above. THYROID AND OTHER SOFT TISSUES: Stable substernal/mediastinal thyroid nodule. BONES: No acute findings. 3D MIPS: Confirm above findings. OTHER: No other significant finding. IMPRESSION: 1. No PE. 2. Interval increase in size of the proximal abdominal aortic aneurysm just distal to the thoracic ao rtic endograft. COMMENT: Quality ID # [id number]: Final reports with documentation of one or more dose reduction techniques (e.g., Automated exposure control, adjustment of the mA and/or kV according to patient size, use of iterative reconstruction technique) TECHNICAL DOCUMENTATION: JOB ID: [id number] 2010 [employer]- All Rights Reserved Reading location - IP/workstation name: [email or web address]
[2019-11-26 17:33] VITALS: BP 124/72
--- NOTE | 2019-11-26 21:54 | EKG REPORT ---
SEVERITY:- ABNORMAL ECG - SINUS RHYTHM LEFT ANTERIOR FASCICULAR BLOCK PROBABLE LEFT VENTRICULAR HYPERTROPHY CONSIDER ANTERIOR INFARCT : Confirmed by: Cookie Cerda MD 26-Nov-2019 21:53:55
== END 2019-11-26 17:37 | disposition home or self-care (01) ==
LOC: ER 14:19
DX: R06.02 Shortness of breath (principal); I71.4 Abdominal aortic aneurysm, without rupture; E11.9 Type 2 diabetes mellitus without complications; I25.10 Atherosclerotic heart disease of native coronary artery without angina pectoris; I10 Essential (primary) hypertension; Z20.828 Contact with and (suspected) exposure to other viral communicable diseases
CPT/HCPCS: 93005; 99285; 36415; 82550; 85025; 85610; 85730; 80053; 84484; 83880; 71275; 93010; U0003; C9803; 81001; 82272; 84439; 84443; 84481; 85379; 87635

== ENCOUNTER → 2019-11-26 | Outpatient (CLI) | payer MEDICARE, MEDICAID ==
[2019-11-26 10:14] LABS: APPEARANCE,URINE CLEAR; BILIRUBIN,URINE NEGATIVE (NEGATIVE); COLOR,URINE YELLOW; GLUCOSE, URINE NEGATIVE (NEGATIVE); KETONES,URINE NEGATIVE (NEGATIVE); LEUKOCYTE ESTERASE,URINE NEGATIVE (NEGATIVE); NITRITE,URINE NEGATIVE (NEGATIVE); PROTEIN,URINE NEGATIVE (NEGATIVE); URINE SPECIFIC GRAVITY 1.011; UROBILINOGEN,URINE NEGATIVE mg/dL (<2.0)
[2019-11-26 14:25] LABS: FREE T3 5.16 pg/mL (2.77-5.27); FREE T4 (FREE THYROXINE) 1.21 ng/dL (0.78-2.19)
== END ==
LOC: OD 09:01
PROVIDERS: ATTEND Internal Medicine Cardiovascular Disease
DX: D64.9 Anemia, unspecified (principal); R06.02 Shortness of breath; R00.2 Palpitations
CPT/HCPCS: 36415; 81001; 82272; 83880; 84439; 84443; 84481; 85379

== ENCOUNTER → 2019-12-06 | Outpatient (CLI) | payer MEDICARE, MEDICAID ==
--- NOTE | 2019-12-06 14:10 | DRAGON STRESS TEST REPORT ---
Name: Hilda Conteh : June Date: DEC 05 The patient underwent a stress/rest, single isotope SPECT Imaging with pharmacological stress and gated SPECT imaging on for evaluation of dyspnea. The patient underwent infusion of regadenoson 0.4mg IV using the standard protocol. The heart rate was 75 beats per minute at baseline and increased to 110 beats during the infusion of regadenoson. The resting blood pressure was 117/57 mm/Hg and increased to 127/65 mm/Hg, which is a normal response. The patient complained of dyspnea during the procedure. The resting electrocardiogram demonstrated NSR. Stress electrocardiogram is non- diagnostic in the setting of pharmacological stress. Myocardial perfusion imaging was performed at rest following the injection of 10.93 mCi of sestamibi. At peak pharmacolgic effect, the patient was injected with 29.4 mCi of sestamibi. Gating post-stress tomographic imaging was performed 60 minutes after stress. Findings The overall quality of the study is excellent. Raw images demonstrate no significant artifacts. Left ventricular cavity is noted to be normal on the rest and stress studies. Resting SPECT images demonstrate homogeneous tracer distribution throughout the myocardium. The stress images reveal homogeneous tracer distribution throughout the myocardium. Gated SPECT imaging reveals normal myocardial thickening and wall motion. The left ventricular ejection fraction was calculated to be 60% Impression -Myocardial perfusion imaging is normal. -There is no scintigraphic evidence of ischemia or infarct. -Overall left ventricular systolic function was normal without wall motion abnormalities. -There are no prior studies for comparison. MTDD
== END ==
LOC: RAD 07:30
PROVIDERS: ATTEND Internal Medicine Cardiovascular Disease
DX: R06.02 Shortness of breath (principal)
CPT/HCPCS: 93017; 78452; A9500; J2785; Q9969

== ENCOUNTER → 2019-12-15 | Outpatient (CLI) | payer MEDICARE, MEDICAID | LOC: OD 10:37 | PROVIDERS: ATTEND Internal Medicine | DX: D53.9 Nutritional anemia, unspecified (principal) | CPT/HCPCS: 36415; 82607 ==

== ENCOUNTER → 2020-03-02 | Outpatient (CLI) | payer MEDICARE, MEDICAID ==
[2020-03-02 11:43] LABS: HEMATOCRIT 32.4 % (36.0-47.0); HEMOGLOBIN 10.9 g/dL (12.0-15.5); PLATELET COUNT 142 10^3/uL (150-450); RED CELL DISTRIBUTION WIDTH 15.5 % (11.5-14.0); WHITE BLOOD COUNT 10.4 10^3/uL (4.0-10.5)
[2020-03-02 11:50] LABS: RED BLOOD COUNT 3.16 10^6/uL (3.72-5.28)
[2020-03-02 11:51] LABS: MEAN CORPUSCULAR HEMOGLOBIN 34.4 pg (27.0-33.4); MEAN CORPUSCULAR HGB CONC 33.5 g/dL (32.0-36.0); MEAN CORPUSCULAR VOLUME 103 fl (80-97)
[2020-03-02 11:57] LABS: FREE T3 3.61 pg/mL (2.77-5.27); FREE T4 (FREE THYROXINE) 1.12 ng/dL (0.78-2.19)
[2020-03-02 11:58] LABS: ABSOLUTE LYMPHOCYTES# (MANUAL) 0.4 10^3/uL (0.5-4.7); ABSOLUTE MONOCYTES # (MANUAL) 0.4 10^3/uL (0.1-1.4); BASOPHILS % (MANUAL) 2 % (0-2); EOSINOPHILS % (MANUAL) 0 % (0-6); LYMPHOCYTES % (MANUAL) 4 % (13-45); MONOCYTES % (MANUAL) 4 % (3-13); SEGMENTED NEUTROPHILS % (MAN) 90 % (42-78); TOTAL CELLS COUNTED 100
[2020-03-02 11:59] LABS: OVALOCYTES SLIGHT; PLATELET COMMENT DECREASED; POIKILOCYTOSIS SLIGHT
[2020-03-02 12:16] LABS: THYROID STIMULATING HORMONE < 0.01 uIU/mL (0.47-4.68)
== END ==
LOC: OD 10:07
PROVIDERS: ATTEND Internal Medicine Pulmonary Disease
DX: E05.90 Thyrotoxicosis, unspecified without thyrotoxic crisis or storm (principal); D64.9 Anemia, unspecified; R06.09 Other forms of dyspnea
CPT/HCPCS: 36415; 83880; 84439; 84443; 84481; 85025